=== PATIENT | male | born 1985 | race Caucasian/White ===

== ENCOUNTER 2017-04-28 09:10 | Inpatient (IN) | payer OTHER ==
[2017-04-28] VITALS (9 sets, daily range): BP systolic 135–144; BP diastolic 68–100; PULSE 80–113; TEMP 98.3–98.6
[~2017-04-28] VITALS: Ht 190.5 cm; Wt 87.9 kg
[2017-04-28 10:11] LABS: BASO # 0.1 (0.0-0.2); BASO % 1.1 % (0.0-2.0); GRAN # 6.5 (1.4-6.5); GRAN % 78.1 % (42.2-75.2); HEMATOCRIT 48.9 % (42.0-52.0); HEMOGLOBIN 16.9 g/dl (13.5-18.0); LYMPH % 12.1 % (20.0-51.0); MEAN CELL VOLUME 95 fl (80.0-100.0); MEAN CORPUSCULAR HEMOGLOBIN 33 pg (27.0-31.0); MEAN CORPUSCULAR HGB CONC 35 g/dl (33.0-37.0); MEAN PLATELET VOLUME 9.2 fl (7.4-10.4); MONO # 0.7 (0.1-0.6); MONO % 8.3 % (1.7-9.3); PLATELET COUNT 214 K/mm3 (130-400); RED BLOOD COUNT 5.16 M/mm3 (4.20-5.60); WHITE BLOOD COUNT 8.3 K/mm3 (4.8-10.8)
[2017-04-28 10:38] LABS: ADJUSTED CALCIUM 8.7 mg/dL (8.4-10.2); ALBUMIN 4.2 gm/dL (3.5-5.0); BILIRUBIN,TOTAL 0.6 mg/dL (0.0-1.0); CALCIUM 8.9 mg/dL (8.4-10.2); CREATININE, serum 0.87 mg/dL (0.66-1.25); POTASSIUM 3.7 mmol/L (3.4-5.0); TOTAL PROTEIN 6.4 gm/dL (6.4-8.2)
[2017-04-29 03:45] VITALS: BP 140/85; PULSE 77
[2017-04-29 06:39] VITALS: BP 130/77; PULSE 82; TEMP 98
[2017-04-29 08:57] VITALS: BP 117/73; PULSE 69; TEMP 98.6
[2017-04-29] MEDS ORDERED: ROXICODONE 55 MG/TAB PO (11:11)
[2017-04-29] MEDS ORDERED: COLACE 100100 MG/CAP PO (11:12)
[2017-04-29 13:34] VITALS: BP 125/83; PULSE 71; TEMP 98.3
== END 2017-04-29 17:45 | disposition home or self-care (01) | DRG 501 ==
LOC: COL.ER 09:10 → SURG 11:13
PROVIDERS: Emergency Medicine; Orthopaedic Surgery
PROC: 0PBK0ZZ Excision of Right Ulna, Open Approach (ICD-10-PCS; 2017-04-28)
PROC: 0PSK04Z Reposition Right Ulna with Internal Fixation Device, Open Approach (ICD-10-PCS; principal; 2017-04-28 17:00)
PROC: 0PDK0ZZ Extraction of Right Ulna, Open Approach (ICD-10-PCS; 2017-04-28 17:00)
DX: S52.021B Displaced fracture of olecranon process without intraarticular extension of right ulna, initial encounter for open fracture type I or II (principal); S06.0X1A Concussion with loss of consciousness of 30 minutes or less, initial encounter; V49.9XXA Car occupant (driver) (passenger) injured in unspecified traffic accident, initial encounter; I10 Essential (primary) hypertension; Z87.891 Personal history of nicotine dependence; R40.2413 Glasgow coma scale score 13-15, at hospital admission
CPT/HCPCS: C1713; J0690; J1100; J1170; J1644; J1885; J2250; J2270; J2405; J2704; J2765; J2795; J3010; J7030

== ENCOUNTER → 2020-05-21 | Outpatient (CLI) | payer BC ==
[~2020-05-21] MED LIST: COLACE 100100 MG/CAP PO; ROXICODONE 55 MG/TAB PO
== END ==
LOC: COL.CARD 02-24 13:00
DX: R55 Syncope and collapse (principal)

== ENCOUNTER 2021-03-28 10:21 | Day surgery (SDC) | payer OTHER ==
[~2021-03-28] VITALS: Ht 193 cm; Wt 85.3 kg
[2021-03-28 11:06] VITALS: BP 129/92; PULSE 76; TEMP 98.2
[2021-03-28] MEDS ORDERED: KEPPRA XR500 MG PO (11:11)
[2021-03-28] MEDS ORDERED: PREDNISONE20 MG PO (11:12)
[2021-03-28] MEDS ORDERED: NORCO 325 MG-51 TAB PO (13:14)
[2021-03-28] MEDS ORDERED: MOTRIN 600600 MG/TAB PO (13:14)
[2021-03-28 14:12] VITALS: BP 133/89; PULSE 66; TEMP 98.2
--- NOTE | 2021-03-28 14:12 | NUR ---
1412- PATIENT BROUGHT BACK TO [facility] VIA CART FROM [place]. REPORT RECIEVED FROM DAVIAN HANDLEY AND OR NURSE ASHVIN. ALL QUESTIONS ANSWERED. PATIENT DENIES NAUSEA, STATES PAIN IS 2/10 TO ABDOMEN. REQUESTS WATER APPLE JUICE AND CRACKERS. FAMILY MEMBER TO DRIVE PATIENT HOME. INCISION TO UMBILICUS CLEAN DRY INTACT. IV INFUSING TO LEFT AC. WARM BLANKET PROVIDED, CALL [facility] WITHIN REACH. WILL CONTINUE TO MONITOR. 1430- PATIENT TOLERATING FOOD AND DRINK WITHOUT DIFFICULTY. WILL CONTINUE TO MONITOR. VITAL SIGNS STABLE 1500- VITAL SIGNS STABLE. PATIENT STATES HE WOULD LIKE TO GO HOME. IV REMOVED, INTACT. PATIENT TO GET DRESSED AT THIS TIME. 1520- DISCHARGE INSTRUCTIONS REVIEWED WITH PATIENT AND FAMILY MEMBER. ALL QUESTIONS ANSWERED. [facility] TO BE DRIVEN HOME BY DEANNA. ALL BELONGINGS IN HAND.
[2021-03-28 14:30] VITALS: BP 137/93; PULSE 78
[2021-03-28 14:45] VITALS: BP 125/88; PULSE 80
[2021-03-28 15:00] VITALS: BP 113/73; PULSE 70
== END 2021-03-28 15:25 | disposition home or self-care (01) ==
LOC: SDCO 10:21
DX: K42.9 Umbilical hernia without obstruction or gangrene (principal); I10 Essential (primary) hypertension; G40.909 Epilepsy, unspecified, not intractable, without status epilepticus; L02.221 Furuncle of abdominal wall; F32.9 Major depressive disorder, single episode, unspecified; F17.210 Nicotine dependence, cigarettes, uncomplicated; Z20.822 Contact with and (suspected) exposure to COVID-19; Z80.9 Family history of malignant neoplasm, unspecified; Z80.3 Family history of malignant neoplasm of breast; Z82.49 Family history of ischemic heart disease and other diseases of the circulatory system
CPT/HCPCS: C1781; J0690; J1100; J1885; J2250; J2405; J2704; J3010; J7120